=== PATIENT | female | born 1980 | race Caucasian/White ===

== ENCOUNTER 2022-02-14 11:51 | Emergency (ER) | payer OTHER, SELFPAY ==
[2022-02-14 11:58] VITALS: BP 129/79; PULSE 72; RESP 14; TEMP 37.3; O2SAT 99; BMI 27.5
--- NOTE | 2022-02-14 12:11 | ED.GENADULT ---
HPI - General Adult General Time Seen by Provider: 12:11 Date Seen: 02/14/22 Chief complaint: GI Bleed Stated complaint: Rectal bleeding Time Seen by Provider: 02/14/22 11:52 Source: patient and RN notes reviewed Mode of arrival: ambulatory Limitations: no limitations History of Present Illness HPI narrative: Patient is coming in with bleeding rectally. She thinks it is external. On Thursday she had a lot of pain in the rectal area and thought it was from a hemorrhoid. It hurts to sit. Thursday night into Thursday she noted that she was bleeding through 1 clothing. She also had her period but Thursday when the tampon was nearly clean when she removed it in she had blood through something she realized it was coming rectally. She has not had any rectal pain since Thursday. Denies pain with defecation or constipation. She has had hemorrhoids before but is not aware of any treatment for thrombosed hemorrhoids. She is not having any significant bleeding causing any sense of palpitations, tachycardia, lightheadedness. No significant abdominal pain, does admit there is maybe a little crampy type pain from her menstrual cycle. Denies any family history of any ulcerative colitis or Crohn's, no known inflammatory bowel disease, no known GI or colon cancers that she is aware of. Onset (ago): day(s) Related Data Home Medications Medication Instructions Recorded Confirmed No Known Home Medications 02/14/22 02/14/22 Allergies Allergy/AdvReac Type Severity Reaction Status Date / Time No Known Drug Allergies Allergy Verified 02/14/22 11:58 Review of Systems Status of ROS: Reports: 6 or more systems reviewed and unremarkable except as noted in History and below [facility] Medical History (Updated 02/14/22 @ 12:45 by Reema Pabon MD) No significant past medical history Surgical History (Updated 02/14/22 @ 12:28 by Radha Calero RN) History of delivery Social History Smoking Status: Never smoker How often do you have a drink containing alcohol: monthly or less AUDIT-C Alcohol total score: 1 Non-prescribed substance use: denies use Exam Const: Vital Signs, click to edit/add: Vital Signs - 24 hr 02/14/22 11:58 Temperature 99.2 F Pulse Rate [Right Pulse Oximeter] 72 Respiratory Rate 14 Blood Pressure [Ri ght Upper Arm] 129/79 Pulse Oximetry 99 Documenting provider has reviewed patient's vital signs: yes Common normals: no apparent distress, average body habitus, oriented x3, no limitations, healthy appearing and alert HENMT: Common normals: normocephalic, head/scalp atraumatic and hearing grossly normal bilaterally Head and scalp: normocephalic and atraumatic Eye: Common normals: PERRL, EOMs intact bilaterally and conjunctivae normal Conjunctiva: conjunctiva(e) normal Pupil: PERRL Neck & C-Spine: Common normals: full ROM, no lymphadenopathy, supple, no meningeal signs, no JVD and thyroid normal Thyroid: thyroid normal Resp: Common normals: normal respiratory effort, no retractions, no use of accessory muscles and clear to auscultation bilaterally Auscultation: clear to auscultation bilaterally Cardio: Common normals: no JVD, regular rate, regular rhythm, S1 normal heart sound, S2 normal heart sound, no gallops, no clicks and no murmurs Rate: regular rate Rhythm: regular rhythm Heart sounds: S1 normal and S2 normal GI: Common normals: Normal to inspection, nondistended, normoactive bowel sounds present, soft to palpation, non-tender, no hepatosplenomegaly and no masses Palpation: soft and no hepatosplenomegaly : Other: Do see some bleeding externally around the anus. At about a 5 o'clock position there is purplish large raised area. She is initially not tender but when I go to compress or manually extrude the clot she does have pain. She has a thrombosed hemorrhoid and there is a little superficial opening where she is bleeding from. 3 mL of plain 1% lidocaine was subsequently drawn up. About 2 mL was injected locally. Was able to extrude the thrombosed clot from the opening present. There was no significant bruising or bleeding afterwards. Neuro: Common normals: oriented x3 Sensorium/orientation: alert Meningeal signs: no meningeal signs Course Vital Signs Vital signs: Initial Vital Signs Temperature 99.2 F 02/14/22 11:58 Temperature Source Temporal Artery Scan 02/14/22 11:58 Pulse Rate 72 02/14/22 11:58 Respiratory Rate 14 02/14/22 11:58 Blood Pressure 129/79 02/14/22 11:58 Blood Pressure Mean 95 02/14/22 11:58 Blood Pressure Position Sitting 02/14/22 11:58 Pulse Oximetry 99 02/14/22 11:58 Oxygen Delivery Method 02/14/22 11:58 Vital Signs Temperature 99.2 F 02/14/22 11:58 Pulse Rate 72 02/14/22 11:58 Respiratory Rate 14 02/14/22 11:58 Blood Pressure 129/79 02/14/22 11:58 Pulse Oximetry 99 02/14/22 11:58 Temperature 99.2 F 02/14/22 11:58 Pulse Rate 72 02/14/22 11:58 Respiratory Rate 14 02/14/22 11:58 Blood Pressure 129/79 02/14/22 11:58 Pulse Oximetry 99 02/14/22 11:58 Critical Care Time Critical Care Time Critical Care Time: No Discharge Plan Discharge Clinical Impression: External hemorrhoid, thrombosed Patient Disposition: Home, Self-Care Condition: Stable Instructions: Hemorrhoids (ED) Additional Instructions: Recommend using stool softener for a goal of soft but formed stools daily, recommend MiraLax and follow-up bowel directions for dosing. May have some spotting from this hemorrhoidal area but should not be heavy. I would anticipate maybe ongoing spotting with some wiping up to the next week but would not expect significant bleeding. If he has ongoing issues with hemorrhoids, can talk to surgery about having these surgically corrected. Referral could be placed by her primary care provider. Can do Sitz baths for the next few days. Recommend non perfumed wipes and gentle cleaning of the area to help prevent further bleeding. Activity Level: Activity as Tolerated Prescriptions: No Action No Known Home Medications 0RF Follow Up/Referrals: Shayne Link MD [Staff Physician] - Stand Alone Forms: [facility] Info Instructions
[2022-02-14] MEDS: LIDOCAINE 1% 20 ML VIAL 3 ML INJECTION (12:45)
== END 2022-02-14 13:00 | disposition home or self-care (01) ==
PROVIDERS: Emergency Provider Family Medicine
DX: K64.5 Perianal venous thrombosis (principal)
CPT/HCPCS: 99282; 99283

== ENCOUNTER 2024-01-22 07:45 | Outpatient (CLI) | payer OTHER, BC, SELFPAY ==
--- NOTE | 2024-01-22 08:00 | CRLHL7_ITS ---
For Patients: As a result of the Cures Act, medical imaging exams and procedure reports are released immediately into your electronic medical record. You may view this report before your referring provider. If you have questions, please contact your health care provider. Indication: Elbow pain Technique: Right elbow 3 views Comparison: None Findings: Mild spurring at the coronoid process. No joint effusion. No fracture. No spurring at the epicondyles. Impression: Mild degenerative arthrosis. No fracture deformity. No synovitis. Dictated by Edwin Otero MD @ 01/24/2024 6:45:51 AM (Electronically Signed)
== END 2024-01-22 07:46 | disposition home or self-care (01) ==
PROVIDERS: Visit Provider Chiropractor
DX: M25.521 Pain in right elbow (principal); M19.021 Primary osteoarthritis, right elbow
CPT/HCPCS: 73080

== ENCOUNTER 2024-04-25 07:37 | Outpatient (CLI) | payer BC, SELFPAY ==
--- NOTE | 2024-04-25 07:45 | CRLHL7_ITS ---
For Patients: As a result of the Century Cures Act, medical imaging exams and procedure reports are released immediately into your electronic medical record. You may view this report before your referring provider. If you have questions, please contact your health care provider. DIGITAL DIAGNOSTIC BILATERAL MAMMOGRAM USING TOMOSYNTHESIS AND COMPUTER-AIDED DETECTION LEFT BREAST ULTRASOUND CLINICAL HISTORY: LEFT breast lump. COMPARISON: 08/09/2020. TECHNIQUE: Digital BILATERAL mammogram in four projections with computer-aided detection. Tomosynthesis was used in this interpretation. Real-time ultrasound imaging of LEFT breast with imaging documentation. BREAST COMPOSITION: The breasts are heterogeneously dense, which may obscure small masses. FINDINGS: 3D CC/MLO BILATERAL mammogram images submitted. No suspicious mass or architectural distortion. No suspicious calcifications or adenopathy. Targeted LEFT breast ultrasound performed in the area of concern at 2 o`clock 8 cm from the nipple performed. Normal dense breast tissue is present. No solid mass or fluid collection. IMPRESSION: No suspicious findings. No evidence of malignancy. RECOMMENDATIONS: Annual BILATERAL screening mammography. Results and recommendations discussed with the patient. BI-RADS Category 2: Benign A lay language report of this examination will be provided to the patient. Dictated by Edwin Otero MD @ 04/25/2024 9:33:19 AM jj/Dictated by: Edwin Otero MD @ 04/25/2024 9:33:00 AM (Electronically Signed)
--- NOTE | 2024-04-25 08:15 | CRLHL7_ITS ---
For Patients: As a result of the Cures Act, medical imaging exams and procedure reports are released immediately into your electronic medical record. You may view this report before your referring provider. If you have questions, please contact your health care provider. PLEASE SEE DIGITAL DIAGNOSTIC BILATERAL MAMMOGRAM PERFORMED SAME DAY CRL:julia dumont/Dictated by: Edwin Otero MD @ 04/25/2024 9:33:00 AM (Electronically Signed)
== END 2024-04-25 07:38 | disposition home or self-care (01) ==
LOC: MAMMO 07:38
PROVIDERS: Visit Provider Registered Nurse
DX: N63.20 Unspecified lump in the left breast, unspecified quadrant (principal); R92.333 Mammographic heterogeneous density, bilateral breasts
CPT/HCPCS: 76642; 77066; G0279

== ENCOUNTER 2024-06-21 13:33 | Outpatient (CLI) | payer BC, SELFPAY | END 2024-06-21 13:34 | disposition home or self-care (01) | LOC: NFLDREF 13:34 | PROVIDERS: Visit Provider Obstetrics & Gynecology | DX: N92.0 Excessive and frequent menstruation with regular cycle (principal); Z13.1 Encounter for screening for diabetes mellitus | CPT/HCPCS: 84443 ==

== ENCOUNTER 2024-06-27 11:13 | Outpatient (CLI) | payer BC, SELFPAY ==
--- NOTE | 2024-06-27 11:15 | CRLHL7_ITS ---
For Patients: As a result of the Century Cures Act, medical imaging exams and procedure reports are released immediately into your electronic medical record. You may view this report before your referring provider. If you have questions, please contact your health care provider. INDICATION: Heavy frequent menstruation COMPARISON: none TECHNIQUE: 2D perez scale and color Doppler images were acquired of the pelvis using a transabdominal and transvaginal approach. FINDINGS/IMPRESSION: Sonographic images demonstrate a normal size and smooth outer contour of the uterus. Uterus measures 9.0 cm in length by 4.4 cm in AP diameter by 5.8 cm in transverse dimension. The myometrium has a normal uniform echotexture. The endometrial lining appears normal and measures 6.9 mm in composite thickness. The right ovary measures 2.7 x 1.3 x 1.8 cm in size and the left ovary measures 4.7 x 2.9 x 3.6 cm. The ovaries demonstrate normal arterial and venous blood flow on color Doppler analysis. There are no suspicious fluid collections within the cul-de-sac. Simple left ovarian cyst measures 3.1 x 2.6 x 2.9 cm. Dictated by Edwin Otero MD @ 06/27/2024 2:48:33 PM (Electronically Signed)
== END 2024-06-27 11:14 | disposition home or self-care (01) ==
PROVIDERS: Visit Provider Obstetrics & Gynecology
DX: N92.0 Excessive and frequent menstruation with regular cycle (principal); N83.201 Unspecified ovarian cyst, right side
CPT/HCPCS: 76830; 76856

== ENCOUNTER 2024-07-25 07:58 | Outpatient (CLI) | payer BC, SELFPAY ==
--- NOTE | 2024-07-25 09:55 | W.ANESCHARGE ---
Anesthesia Charges Start Date/Time Anesthesia Start Date: 07/25/24 Anesthesia Start Time: 08:35 Stop Date/Time Anesthesia Stop Date: 07/25/24 Anesthesia Stop Time: 09:05
== END 2024-07-25 07:59 | disposition home or self-care (01) ==
LOC: OP CLINIC 07:58
PROVIDERS: Visit Provider Internal Medicine
DX: Z12.11 Encounter for screening for malignant neoplasm of colon (principal); K64.4 Residual hemorrhoidal skin tags; K64.8 Other hemorrhoids
CPT/HCPCS: 00812; 45378; J2704